=== PATIENT | male | born 1975 | race Caucasian/White ===

== ENCOUNTER 2022-11-04 13:51 | Emergency (ER) | payer OTHER ==
[2022-11-04] MEDS ORDERED: Lidocaine 1% 20 ML MDV INFILT ONE (13:52)
[2022-11-04] MEDS ORDERED: Diphtheria,Pertussis(Acell),Tetanus Vaccine 0.5 ML Syringe IM ONE (15:31)
== END 2022-11-04 16:04 | disposition home or self-care (01) ==
LOC: FB.ED 13:51
DX: S51.812A Laceration without foreign body of left forearm, initial encounter (principal); Z88.0 Allergy status to penicillin; Z79.899 Other long term (current) drug therapy; Z23 Encounter for immunization; W20.8XXA Other cause of strike by thrown, projected or falling object, initial encounter; Y92.59 Other trade areas as the place of occurrence of the external cause
CPT/HCPCS: 12002; 90471; 90715; 99283-25